=== PATIENT | male | born 1940 ===

== ENCOUNTER 2022-12-30 10:41 | Day surgery (SDC) | payer MEDICARE ==
[2022-12-28 14:18] VITALS: BMI 27.1
[2022-12-30] MEDS ORDERED: Lidocaine 1% (PF) 30 ML VIAL ONE (11:25)
[2022-12-30] MEDS ORDERED: Neomycin-Polymyxin 1 ML AMP ONE (11:25)
[2022-12-30] MEDS ORDERED: Propofol 500 MG/50 ML VIAL ONE (11:35)
[2022-12-30] MEDS ORDERED: FENTANYL 50 MCG/ML 1 ML VIAL ONE (11:35)
[2022-12-30] MEDS ORDERED: Midazolam HCl 2 mg/2 ml Vial ONE (11:35)
[2022-12-30] MEDS ORDERED: Sodium Chloride 0.9% 100 ML ONE (11:49)
[2022-12-30] MEDS ORDERED: CEFAZOLIN 2 GM VIAL ONE (11:49)
[2022-12-30 12:00] LABS: Hemoglobin 16.4 g/dL (14.0-18.0); Mean Corpuscular HGB CONC 31.8 g/dL (32.0-36.0); Mean Corpuscular Hemoglobin 33.4 pg (27.0-31.0); Mean Platelet Volume 8.9 fL (7.4-10.4); Platelet Count 163 10x3/uL (130-400); RBC Distribution Width 12.9 % (11.5-14.5); Red Blood Cell (RBC) Count 4.91 mill/uL (4.70-6.10); White Blood Cell (WBC) Count 7.6 10x3/uL (4.8-10.8)
[2022-12-30 12:08] LABS: Prothrombin Time 13.5 sec (12.0-14.7)
== END 2022-12-30 13:52 | disposition home or self-care (01) ==
LOC: SDC 10:41
PROVIDERS: ATTEND Neurological Surgery
PROC: 01N50ZZ Release Median Nerve, Open Approach (ICD-10-PCS; principal; 2022-12-30)
DX: G56.02 Carpal tunnel syndrome, left upper limb (principal); I10 Essential (primary) hypertension; E78.5 Hyperlipidemia, unspecified; Z85.46 Personal history of malignant neoplasm of prostate; Z87.891 Personal history of nicotine dependence; Z92.3 Personal history of irradiation; Z79.01 Long term (current) use of anticoagulants; Z79.1 Long term (current) use of non-steroidal anti-inflammatories (NSAID); Z79.899 Other long term (current) drug therapy; Z88.2 Allergy status to sulfonamides; Z95.2 Presence of prosthetic heart valve
CPT/HCPCS: 64721; 85027; 85610; 85730; J3010; J2001; J2250; J2704; J3490